=== PATIENT | male | born 1995 | race Caucasian/White ===

== ENCOUNTER 2016-09-11 06:15 | Observation (INO) | payer OTHER ==
[~2016-09-11] VITALS: Ht 193 cm; Wt 98.5 kg
[2016-09-11 07:54] LABS: BASOPHIL % 0.4 % (0-2); PLATELET COUNT 226 x10^3mcL (130-400); RED CELL DISTRIBUTION WIDTH 13.1 % (11.5-14.5)
[2016-09-11 07:59] LABS: CALCIUM 9.9 mg/dL (8.5-10.1); CARBON DIOXIDE 20.3 mmol/L (21-32); CHLORIDE SERUM 101 mmol/L (98-107); CREATININE SERUM 1.5 mg/dL (0.7-1.3); GFR1 > 60 mL/min; GLUCOSE SERUM 121 mg/dL (74-106); POTASSIUM SERUM 3.8 mmol/L (3.5-5.1); SODIUM SERUM 138 mmol/L (136-145)
[2016-09-11 08:03] LABS: ALBUMIN 4.9 g/dL (3.4-5.0); ALKALINE PHOSPHATASE 95 U/L (46-116); ALT/SGPT 34 U/L (16-63); AST/SGOT 31 U/L (15-37); LIPASE 100 IU/L (73-393); TOTAL PROTEIN, SERUM 8.5 g/dL (6.4-8.2)
[2016-09-11] MEDS ORDERED: KETOCONAZOLE200 MG PO (09:20)
[2016-09-11 11:24] LABS: microscopic required? YES; urine erythrocyte NEGATIVE (NEGATIVE)
[2016-09-11 11:50] LABS: T3 TOTAL 1.47 ng/mL
[2016-09-11 11:56] LABS: FREE T4 1.34 ng/dL (0.76-1.46); T4(THYROXINE) 11.8 ug/dL (4.7-13.3)
[2016-09-11 12:14] LABS: AMPHETAMINE QUAL UR NONE DETECTED (NEG <=1000)
[2016-09-11 12:17] LABS: CHOLESTEROL/HDL RATIO 2.9
[2016-09-11 12:33] LABS: MAGNESIUM 1.9 mg/dL (1.8-2.4)
[2016-09-11 12:50] LABS: PHOSPHOROUS 0.5 mg/dL (2.5-4.9)
[2016-09-11 13:13] VITALS: BP 114/58
[2016-09-11 14:32] VITALS: BP 110/56
[2016-09-11 17:18] VITALS: BP 112/43
[2016-09-11 21:28] VITALS: BP 107/64
[2016-09-12 05:49] VITALS: BP 106/45
[2016-09-12 06:40] LABS: BASOPHIL % 0.6 % (0-2); CALCIUM 7.9 mg/dL (8.5-10.1); CARBON DIOXIDE 22.8 mmol/L (21-32); CHLORIDE SERUM 108 mmol/L (98-107); CREATININE SERUM 1.4 mg/dL (0.7-1.3); GFR1 > 60 mL/min; GLUCOSE SERUM 94 mg/dL (74-106); PHOSPHOROUS 3.4 mg/dL (2.5-4.9); PLATELET COUNT 138 x10^3mcL (130-400); POTASSIUM SERUM 3.8 mmol/L (3.5-5.1); RED CELL DISTRIBUTION WIDTH 12.8 % (11.5-14.5); SODIUM SERUM 141 mmol/L (136-145)
[2016-09-12 08:20] VITALS: BP 110/50
[2016-09-12 12:55] VITALS: BP 116/56
[2016-09-12] MEDS ORDERED: FLA500 PO (14:56)
[2016-09-12] MEDS ORDERED: LEVAQUIN750 MG PO (14:59)
[2016-09-12] MEDS ORDERED: ZOF4 PO (15:00)
[2016-09-12] MEDS ORDERED: LAC PO (15:02)
[2016-09-12] MEDS ORDERED: APAP500 MG PO (15:04)
[2016-09-12 16:42] VITALS: BP 116/56
[2016-09-12 17:25] VITALS: BP 123/70
== END 2016-09-12 18:20 | disposition home or self-care (01) | DRG 393 ==
LOC: ED 06:15 → DU 09:51 → MU 09:51 → DU 09:51 → MU 10:42 → DU 10:42 → MU 09-12 07:59
PROVIDERS: Emergency Medicine; ADMIT Family Medicine
DX: I88.0 Nonspecific mesenteric lymphadenitis (principal); N17.0 Acute kidney failure with tubular necrosis; E86.0 Dehydration; B35.1 Tinea unguium; E83.51 Hypocalcemia; E83.39 Other disorders of phosphorus metabolism; E03.9 Hypothyroidism, unspecified
CPT/HCPCS: 84439; 87046; 87046-59; G0378; J0696; J1885; J2270; J2405; J3490; J7030; Q0092

== ENCOUNTER 2017-11-16 02:27 | Emergency (ER) | payer SELFPAY ==
[~2017-11-16] VITALS: Ht 190.5 cm; Wt 102.5 kg
[~2017-11-16 02:27] MED LIST: APAP500 MG PO; FLA500 PO; KETOCONAZOLE200 MG PO; LAC PO; LEVAQUIN750 MG PO; ZOF4 PO
[2017-11-16 02:33] VITALS: BP 153/80; Ht 190.5 cm; Wt 102.5 kg
== END 2017-11-16 04:19 | disposition left against medical advice (07) ==
LOC: ED 02:27
DX: Z53.21 Procedure and treatment not carried out due to patient leaving prior to being seen by health care provider (principal)